=== PATIENT | male | born 1985 | race Caucasian/White ===

== ENCOUNTER 2018-11-20 05:53 | Day surgery (SDC) | payer OTHER ==
[2018-11-20] MEDS: CEFAZOLIN 2 GM/50 ML (PMX) 50 ML IVPB (07:00)
[2018-11-20] MEDS ORDERED: DESFLURANE 15 MIN (07:00)
[2018-11-20] MEDS ORDERED: CEFAZOLIN 1 GM INJ (07:05)
[2018-11-20] MEDS ORDERED: FENTAnyl 50 MCG/ML VIAL ×2 (07:05→07:55)
[2018-11-20] MEDS ORDERED: LIDOCAINE 2% (SDV) 5 ML INJ (07:05)
[2018-11-20] MEDS ORDERED: MIDAZOLAM 1 MG/ML 2 ML INJ (07:05)
[2018-11-20] MEDS ORDERED: PROPOFOL 20 ML (07:05)
[2018-11-20] MEDS: LACTATED RINGER'S 1,000 ML IV (07:29)
[2018-11-20] MEDS ORDERED: LIDOCAINE 2% (MDV) 20 ML INJ (07:40)
[2018-11-20] MEDS ORDERED: POLYMYXIN/BACITRACIN 1L IRRIG (07:41)
[2018-11-20] MEDS ORDERED: ONDANSETRON 4 MG INJ (07:55)
[2018-11-20] MEDS ORDERED: FAMOTIDINE 20 MG INJ (07:55)
[2018-11-20] MEDS ORDERED: METOCLOPRAMIDE 10 MG INJ (07:55)
[2018-11-20] MEDS ORDERED: DEXAMETHASONE 4 MG/ML 5 ML INJ (07:55)
[2018-11-20] MEDS: POLYMYXIN/BACITRACIN 1L IRRIG IRR ×2 (08:09)
[2018-11-20] MEDS ORDERED: ONDANSETRON 4 MG INJ IV (08:30)
[2018-11-20] MEDS ORDERED: OXYCODONE/ACETAMINOPHEN (5/325) TAB PO (08:30)
[2018-11-20] MEDS ORDERED: ALBUTEROL 0.083% (NEB) 2.5 MG/3 ML AMP HHN (08:30)
[2018-11-20] MEDS ORDERED: MEPERIDINE 25 MG INJ IV (08:30)
[2018-11-20] MEDS ORDERED: FENTAnyl 50 MCG/ML VIAL IV (08:30)
[2018-11-20] MEDS: BUPIVACAINE 0.5% (SDV) 30 ML INJ (08:43)
[2018-11-20] MEDS: FENTAnyl 50 MCG/ML VIAL IV ×2 (09:24→09:42)
[2018-11-20] MEDS: OXYCODONE/ACETAMINOPHEN (5/325) TAB PO (09:54)
== END 2018-11-20 11:41 | disposition home or self-care (01) ==
LOC: SDS 05:53
DX: T84.84XA Pain due to internal orthopedic prosthetic devices, implants and grafts, initial encounter (principal); M79.671 Pain in right foot; Y79.3 Surgical instruments, materials and orthopedic devices (including sutures) associated with adverse incidents; Y83.8 Other surgical procedures as the cause of abnormal reaction of the patient, or of later complication, without mention of misadventure at the time of the procedure; J45.909 Unspecified asthma, uncomplicated
CPT/HCPCS: 20680; 73630